=== PATIENT | male | born 1970 | race Two or more races ===

== ENCOUNTER 2019-01-04 12:03 | Emergency (ER) | payer OTHER ==
[~2019-01-04] VITALS: Ht 160 cm; Wt 65.8 kg
[2019-01-04 14:03] VITALS: BP 149/94
[2019-01-04] MEDS ORDERED: cefTRIAXone SOD 1,000 MG VL IM ONE (14:45)
== END 2019-01-04 16:17 | disposition home or self-care (01) ==
LOC: ER 12:03
DX: L01.00 Impetigo, unspecified (principal); E11.9 Type 2 diabetes mellitus without complications
CPT/HCPCS: 82962; 96372; 99283; J0696